=== PATIENT | female | born 1980 | race Caucasian/White ===

== ENCOUNTER 2018-12-05 12:03 | Emergency (ER) | payer OTHER ==
[2018-12-05] MEDS ORDERED: ACETAMINOPHEN 325 MG TAB PO ONE (12:11)
--- NOTE | 2018-12-05 12:14 | Emergency Department Record ---
History of Present Illness - General Chief complaint: Extremity Problem Stated complaint: CRUSH INJURY LEFT HAND Time Seen by Provider: 12/05/18 12:08 Source: Patient Mode of Arrival: Ambulatory Limitations: No limitations - History of Present Illness Initial comments: The patient is here due to L hand pain. She was pushing a cart at work and had her L hand pinched between the cart and the wall suffering a crush injury to the hand. The pain pain is over the L 3rd finger. There are no lacerations. MD Complaint: Extremity pain Onset/Timin -: Minutes(s) - Related Data Home Medications Medication Instructions Recorded Confirmed Last Taken Insulin Glargine,Hum.rec.anlog 25 unit SQ DAILY 12/05/18 12/05/18 12/05/18 [Toujeo Solostar] Insulin Lispro [Humalog] 100 unit SQ DAILY 12/05/18 12/05/18 12/05/18 Metformin HCl 1,000 mg PO BID 12/05/18 12/05/18 12/05/18 Metoprolol Tartrate [Lopressor] 25 mg PO DAILY 12/05/18 12/05/18 12/05/18 Allergies Allergy/AdvReac Type Severity Reaction Status Date / Time aspirin Allergy ANAPHYLAXIS Verified 12/05/18 12:37 Penicillins Allergy ANAPHYLAXIS Verified 12/05/18 12:37 Review of Systems Constitutional: Denies: Chills, Fever Eyes: Denies: Eye discharge ENT: Denies: Congestion Respiratory: Denies: Dyspnea Physical Exam - General General Appearance: Alert, Oriented x3, Cooperative, No acute distress - Head Head exam: Atraumatic, Normocephalic, Normal inspection - Eye Eye exam: Normal appearance, PERRL - Extremities Extremities exam: Full ROM (There is pain with full finger flexion.), Tenderness (The pain is mainly over the L 3rd finger proximal phalynx.), Other (The L hand is NVI.). negative: Normal inspection (There is very mild swelling to the L 3rd finger over the proximal phalynx with mod tenderness. There is no L hand MC area or wrist swelling or bruising.), Joint swelling Image of Hand: 1 - Area of very slight swelling and mild tenderness. - Neurological Neurological exam: Alert. negative: Motor sensory deficit Course - Reevaluation(s) Reevaluation #1: The patient is doing well at this time. The hand only has very mild swelling over the proximal L 3rd finger from the MCP to PIP joint. There are no abrasions, erythema, or any other signs of trauma. I did discuss the need for off work today and back to full duty tomorrow. 12/05/18 12:51 Medical Decision Making - Data Complexity MDM Data: X-Ray Ordered and/or Reviewed - Radiology Data Radiology results: Report reviewed (L hand: Neg for fx or any acute injury.) Disposition Disposition: Discharge Clinical Impression: Contusion of hand Qualifiers: Encounter type: initial encounter Laterality: left Qualified Code(s): S60.222A - Contusion of left hand, initial encounter Disposition: Home, Self-Care Condition: (2) Stable Instructions: Contusion in Adults (ED) Additional Instructions: Please ice the hand and finger today and use Tylenol for pain. Please go back to full duty tomorrow and see your Occupational Health provider tomorrow if not better in 2 days. Forms: Patient Portal Access Quality - Quality Measures Quality Measures: N/A - Blood Pressure Screening View Details: Yes Does Patient Have Any of the Following: No Blood Pressure Classification: Pre-Hypertensive BP Reading Systolic Measurement: 122 Diastolic Measurement: 74 Screening for High Blood Pressure: < Pre-Hypertensive BP, F/U Documented > [[id number]] Pre-Hypertensive Follow-up Interventions: Referral to alternative/primary care provider.
--- NOTE | 2018-12-07 06:07 | RADIOLOGY REPORT ---
EXAM: HAND, LEFT 3 VIEWS HISTORY: HAND JAMMED BETWEEN HEAVY OBJECTS JUST PRIOR TO ARRIVAL. PAIN WITH MOTION. PAIN IS WORSE IN THIRD DIGIT. TECHNIQUE: Three views of the left hand. COMPARISON: None. ENCOUNTER: Initial. FINDINGS: There is normal bone mineralization. No acute fracture, dislocation, or destructive bone lesion is seen. The articular relations are maintained. No periarticular erosion. No suspicious focal soft tissue abnormality. IMPRESSION: NO ACUTE BONE NOR JOINT ABNORMALITY IDENTIFIED. JOB NUMBER: [id number] [facility]
== END 2018-12-05 13:04 | disposition home or self-care (01) ==
LOC: ER 12:03
DX: S60.032A Contusion of left middle finger without damage to nail, initial encounter (principal); W23.0XXA Caught, crushed, jammed, or pinched between moving objects, initial encounter; Y92.242 Post office as the place of occurrence of the external cause; Y99.0 Civilian activity done for income or pay
CPT/HCPCS: 99283